=== PATIENT | male | born 1975 | race African-American/Black ===

== ENCOUNTER 2021-07-03 13:12 | Inpatient (IN) ==
[2021-07-03] MEDS ORDERED: ONDANSETRON 4 MG/2 ML VIAL IV ONE (17:44)
[2021-07-03] MEDS ORDERED: MORPHINE 2 MG/1 ML SYRINGE IV STA (17:44)
[2021-07-03] MEDS ORDERED: LABETALOL 20 MG/4 ML SYRINGE IV STA (17:44)
[2021-07-03 18:09] LABS: Basophils % 0.2 % (0.0-0.8); Eosinophils # 0.1 10*3/uL (0.0-0.87); Eosinophils % 0.5 % (0.00-10.9); Hematocrit 34.5 VOL% (42.0-52.0); Hemoglobin 10.6 GM/DL (14.0-18.0); Immature Granulocytes % 0.6 %; Immature Granulocytes Absolute 0.06 #; Lymphocytes # 0.8 10*3/uL (1.4-4.0); Lymphocytes % 8.8 % (21.2-54.2); Mean Corpuscular HGB Conc 30.7 GM/DL (32-36); Mean Corpuscular Volume 97.2 FL (87-102); Mean Platelet Volume 10.7 FL (9.6-12.0); Monocytes % 9.3 % (1.7-12.7); Neutrophils % 80.6 % (38.7-73.9); Platelet Count 177 T/CUMM (130-400); Red Blood Count 3.55 MC/CUMM (3.8-5.5); Red Cell Distribution Width 12.8 % (9.3-17.3); White Blood Count 9.5 T/CUMM (4-12)
[2021-07-03 18:42] LABS: Albumin 3.2 G/DL (3.4-5.0); Bilirubin,Total 0.8 MG/DL (0.20-1.00); Calcium 7.2 MG/DL (8.5-10.1); Potassium 4.3 MMOL/L (3.5-5.1); Total Protein 8.5 G/DL (6.4-8.2)
[2021-07-03] MEDS ORDERED: MAGNESIUM SULF RIDER 4 GM/100 ML PREMIX IV PRN (19:50)
[2021-07-03] MEDS ORDERED: GLUCAGON 1 MG VIAL IM PRN (19:50)
[2021-07-03] MEDS ORDERED: MAGNESIUM SULF RIDER 2 GM/50 ML PREMIX IV PRN (19:50)
[2021-07-03] MEDS ORDERED: DEXTROSE 50% 25 GM/50 ML VIAL IV PRN (19:50)
[2021-07-03] MEDS ORDERED: MORPHINE 2 MG/1 ML SYRINGE IV PRN (19:53)
[2021-07-03] MEDS ORDERED: ACETAMINOPHEN 325 MG TABLET PO PRN (19:53)
[2021-07-03] MEDS ORDERED: ASPIRIN CHEW 81 MG TABLET PO ONE (19:53)
[2021-07-03] MEDS ORDERED: SIMETHICONE CHEW 125 MG TABLET PO PRN (19:53)
[2021-07-03] MEDS ORDERED: ONDANSETRON 4 MG/2 ML VIAL IV PRN (19:53)
[2021-07-03] MEDS ORDERED: POTASSIUM CHLORIDE 20 MEQ TABLET PO PRN (19:53)
[2021-07-03] MEDS ORDERED: POTASSIUM CHLORIDE RIDER 10 MEQ/100 ML PREMIX IV PRN (19:53)
[2021-07-03] MEDS ORDERED: cloNIDine 0.1 MG TABLET PO STA (20:03)
[2021-07-03] MEDS ORDERED: FUROSEMIDE 40 MG/4 ML VIAL IV STA (20:12)
[2021-07-03] MEDS ORDERED: ASPIRIN 325 MG TABLET ONE (20:13)
[2021-07-03] MEDS ORDERED: COLCHICINE 0.6 MG CAPSULE PO STA (20:15)
[2021-07-03] MEDS: HEPARIN 5,000 UNIT/1 ML VIAL SUBCUT SCH (20:29)
[2021-07-03] MEDS: METOPROLOL TARTRATE 25 MG TABLET PO SCH (22:41)
[2021-07-03] MEDS: PANTOPRAZOLE 40 MG TABLET PO SCH (22:41)
[2021-07-03] MEDS: INSULIN REGULAR 100 UNIT/ML SUBCUT SCH (22:41)
[2021-07-03] MEDS: ATORVASTATIN 10 MG TABLET PO SCH (22:41)
[2021-07-03] MEDS: DOCUSATE SODIUM 100 MG CAPSULE PO SCH (22:41)
[2021-07-04 05:15] LABS: Basophils % 0.4 % (0.0-0.8); Eosinophils # 0.1 10*3/uL (0.0-0.87); Eosinophils % 2.3 % (0.00-10.9); Hematocrit 32.1 VOL% (42.0-52.0); Hemoglobin 9.6 GM/DL (14.0-18.0); Immature Granulocytes % 0.4 %; Immature Granulocytes Absolute 0.02 #; Lymphocytes # 1.3 10*3/uL (1.4-4.0); Lymphocytes % 23.2 % (21.2-54.2); Mean Corpuscular HGB Conc 29.9 GM/DL (32-36); Mean Corpuscular Volume 99.7 FL (87-102); Mean Platelet Volume 11.3 FL (9.6-12.0); Neutrophils % 59.7 % (38.7-73.9); Platelet Count 174 T/CUMM (130-400); Red Blood Count 3.22 MC/CUMM (3.8-5.5); Red Cell Distribution Width 12.8 % (9.3-17.3); White Blood Count 5.7 T/CUMM (4-12)
[2021-07-04 05:48] LABS: Osmolality,Calculated 297.8 MOS/KG (273-304); Risk Ratio 4.16; Thyroid Stimulating Hormone 1.71 uIU/ml (0.358-3.74)
[2021-07-04] MEDS ORDERED: FUROSEMIDE 40 MG/4 ML VIAL IV SCH (08:00)
[2021-07-04] MEDS ORDERED: LOSARTAN 25 MG TABLET PO SCH (09:00)
[2021-07-04] MEDS ORDERED: PANTOPRAZOLE 40 MG TABLET PO SCH (09:00)
[2021-07-04] MEDS ORDERED: SPIRONOLACTONE 25 MG TABLET PO SCH (09:00)
[2021-07-04] MEDS: FUROSEMIDE 40 MG/4 ML VIAL IV SCH (09:31)
[2021-07-04] MEDS: HEPARIN 5,000 UNIT/1 ML VIAL SUBCUT SCH ×2 (09:31→20:39)
[2021-07-04] MEDS: PANTOPRAZOLE 40 MG TABLET PO SCH ×2 (09:32→20:39)
[2021-07-04] MEDS: METOPROLOL TARTRATE 25 MG TABLET PO SCH ×2 (09:32→20:42)
[2021-07-04] MEDS: ASPIRIN EC 325 MG TABLET PO SCH (09:32)
[2021-07-04] MEDS: DOCUSATE SODIUM 100 MG CAPSULE PO SCH ×2 (09:32→20:39)
[2021-07-04] MEDS: INSULIN REGULAR 100 UNIT/ML SUBCUT SCH ×4 (09:36→21:07)
[2021-07-04] MEDS: predniSONE 5 MG TABLET PO SCH (14:30)
[2021-07-04] MEDS: allopurinoL 100 MG TABLET PO SCH (14:30)
[2021-07-04] MEDS: ATORVASTATIN 10 MG TABLET PO SCH (20:39)
[2021-07-05] MEDS: hydrALAZINE 20 MG/1 ML VIAL IV PRN ×2 (05:09→16:43)
[2021-07-05 06:07] LABS: Basophils % 0.3 % (0.0-0.8); Eosinophils # 0.1 10*3/uL (0.0-0.87); Eosinophils % 1.7 % (0.00-10.9); Hematocrit 32.6 VOL% (42.0-52.0); Hemoglobin 10.1 GM/DL (14.0-18.0); Immature Granulocytes % 0.3 %; Immature Granulocytes Absolute 0.02 #; Lymphocytes # 1.1 10*3/uL (1.4-4.0); Mean Corpuscular Volume 100.3 FL (87-102); Mean Platelet Volume 11.6 FL (9.6-12.0); Monocytes % 8.7 % (1.7-12.7); Platelet Count 178 T/CUMM (130-400); Red Blood Count 3.25 MC/CUMM (3.8-5.5); Red Cell Distribution Width 12.7 % (9.3-17.3)
[2021-07-05 06:36] LABS: Calcium 7.1 MG/DL (8.5-10.1); Osmolality,Calculated 302.4 MOS/KG (273-304); Potassium 4.3 MMOL/L (3.5-5.1)
[2021-07-05 06:49] LABS: Immunoglobulin A 427 MG/DL (70-400); Immunoglobulin G 1490 MG/DL (700-1600); Immunoglobulin M 84 MG/DL (40-230)
[2021-07-05] MEDS: predniSONE 5 MG TABLET PO SCH (09:52)
[2021-07-05] MEDS: allopurinoL 100 MG TABLET PO SCH (09:52)
[2021-07-05] MEDS: METOPROLOL TARTRATE 25 MG TABLET PO SCH ×2 (09:52→20:31)
[2021-07-05] MEDS: hydrALAZINE 10 MG TABLET PO SCH ×2 (09:52→20:31)
[2021-07-05] MEDS: ASPIRIN EC 325 MG TABLET PO SCH (09:52)
[2021-07-05] MEDS: DOCUSATE SODIUM 100 MG CAPSULE PO SCH ×2 (09:52→20:31)
[2021-07-05] MEDS: PANTOPRAZOLE 40 MG TABLET PO SCH ×2 (09:52→20:31)
[2021-07-05] MEDS ORDERED: COLCHICINE 0.6 MG CAPSULE PO ONE (09:53)
[2021-07-05] MEDS: FUROSEMIDE 40 MG/4 ML VIAL IV SCH (09:57)
[2021-07-05] MEDS: HEPARIN 5,000 UNIT/1 ML VIAL SUBCUT SCH ×2 (09:57→20:39)
[2021-07-05] MEDS: INSULIN REGULAR 100 UNIT/ML SUBCUT SCH ×4 (10:15→21:33)
[2021-07-05 15:05] LABS: Bilirubin,Urine Negative (Negative); Blood, Urine Negative (Negative); Glucose,Urine (UA) 50 mg/dL (Negative); Ketones,Urine Negative (Negative); Nitrite,Urine Negative (Negative); Protein,Urine 100 MG/DL; RBC,Urine 1 /HPF (0-4); Squamous Epithelial Cell,Urine Occasional /HPF (0-10); Urine Appearance CLEAR (Clear); Urine Color Straw (Yellow); Urine Specific Gravity 1.008 (1.001-1.035); Urine Urobilinogen < 2.0 EU/DL (0.2-1.0)
[2021-07-05] MEDS: predniSONE 20 MG TABLET PO SCH (15:09)
[2021-07-05] MEDS: ATORVASTATIN 10 MG TABLET PO SCH (20:31)
[2021-07-05] MEDS ORDERED: hydrALAZINE 20 MG/1 ML VIAL IV PRN (20:57)
[2021-07-05] MEDS ORDERED: LABETALOL 20 MG/4 ML SYRINGE IV PRN (21:00)
[2021-07-06] MEDS ORDERED: NITROGLYCERIN 2% OINT 1 INCH/GM PACK TOP ONE (01:07)
[2021-07-06 06:34] LABS: Protein/Creatinine Ratio,Urine 1.8 RATIO
[2021-07-06 06:38] LABS: Basophils % 0.1 % (0.0-0.8); Hematocrit 31.6 VOL% (42.0-52.0); Hemoglobin 9.7 GM/DL (14.0-18.0); Immature Granulocytes % 0.4 %; Immature Granulocytes Absolute 0.03 #; Lymphocytes # 0.6 10*3/uL (1.4-4.0); Lymphocytes % 7.2 % (21.2-54.2); Mean Corpuscular HGB Conc 30.7 GM/DL (32-36); Mean Corpuscular Volume 98.4 FL (87-102); Monocytes % 6.1 % (1.7-12.7); Neutrophils % 86.2 % (38.7-73.9); Platelet Count 206 T/CUMM (130-400); Red Blood Count 3.21 MC/CUMM (3.8-5.5); Red Cell Distribution Width 12.6 % (9.3-17.3); White Blood Count 7.9 T/CUMM (4-12)
[2021-07-06 07:09] LABS: Calcium 7.2 MG/DL (8.5-10.1); Potassium 4.5 MMOL/L (3.5-5.1)
[2021-07-06] MEDS: predniSONE 20 MG TABLET PO SCH (09:44)
[2021-07-06] MEDS: DOCUSATE SODIUM 100 MG CAPSULE PO SCH ×2 (09:44→20:23)
[2021-07-06] MEDS: allopurinoL 100 MG TABLET PO SCH (09:44)
[2021-07-06] MEDS: hydrALAZINE 25 MG TABLET PO SCH ×2 (09:44→20:23)
[2021-07-06] MEDS: calcitrioL 0.25 MCG CAPSULE PO SCH (09:44)
[2021-07-06] MEDS: ASPIRIN EC 325 MG TABLET PO SCH (09:44)
[2021-07-06] MEDS: METOPROLOL TARTRATE 25 MG TABLET PO SCH ×2 (09:44→20:23)
[2021-07-06] MEDS: FUROSEMIDE 40 MG/4 ML VIAL IV SCH (09:45)
[2021-07-06] MEDS: HEPARIN 5,000 UNIT/1 ML VIAL SUBCUT SCH ×2 (09:45→20:24)
[2021-07-06] MEDS: PANTOPRAZOLE 40 MG TABLET PO SCH ×2 (09:45→20:24)
[2021-07-06] MEDS: INSULIN REGULAR 100 UNIT/ML SUBCUT SCH ×4 (10:48→20:25)
[2021-07-06] MEDS: ISOSORBIDE MONONITRATE 30 MG TABLET PO SCH (14:12)
[2021-07-06] MEDS: ATORVASTATIN 10 MG TABLET PO SCH (20:24)
[2021-07-07 04:41] LABS: Eosinophils % 0.1 % (0.00-10.9); Hematocrit 30.5 VOL% (42.0-52.0); Hemoglobin 9.1 GM/DL (14.0-18.0); Immature Granulocytes % 0.5 %; Immature Granulocytes Absolute 0.04 #; Lymphocytes % 11.6 % (21.2-54.2); Mean Corpuscular HGB Conc 29.8 GM/DL (32-36); Mean Platelet Volume 11.2 FL (9.6-12.0); Monocytes % 8.3 % (1.7-12.7); Neutrophils % 79.5 % (38.7-73.9); Platelet Count 213 T/CUMM (130-400); Red Blood Count 3.08 MC/CUMM (3.8-5.5); Red Cell Distribution Width 12.6 % (9.3-17.3); White Blood Count 8.7 T/CUMM (4-12)
[2021-07-07 05:03] LABS: Calcium 7.4 MG/DL (8.5-10.1); Osmolality,Calculated 305.5 MOS/KG (273-304); Potassium 4.3 MMOL/L (3.5-5.1)
[2021-07-07 05:17] LABS: % Iron Saturation 26.4 % (18-50); Ferritin 85.3 ng/mL (26-388)
[2021-07-07 05:26] LABS: Folate 5.17 NG/ML (5.38-24.0)
[2021-07-07 07:02] LABS: Total Protein (Chem) 6.9 G/DL (6.4-8.3)
[2021-07-07 07:04] LABS: Random Urine Protein (Bench) 87 MG/DL (<11.9)
[2021-07-07 07:05] LABS: Immunoglobulin A (Chem) 427 MG/DL (70-400); Immunoglobulin G (Chem) 1490 MG/DL (700-1600); Immunoglobulin M (Chem) 84 MG/DL (40-230)
[2021-07-07 09:00] LABS: Albumin (SPE) 3.5 G/DL (3.2-5.3); Albumin (SPE) Rel % 50.7 %; Alpha 1 (SPE) 0.3 G/DL (0.1-0.4); Alpha 1 (SPE) Rel % 4.1 %; Alpha 2 (SPE) 0.8 G/DL (0.4-1.0); Alpha 2 (SPE) Rel % 12.3 %; Beta (SPE) 0.8 G/DL (0.5-1.1); Beta (SPE) Rel % 12.2 %; Gamma (SPE) 1.4 G/DL (0.7-1.7); Gamma (SPE) Rel % 20.7 %
[2021-07-07] MEDS ORDERED: predniSONE 20 MG TABLET PO SCH (09:00)
[2021-07-07] MEDS ORDERED: predniSONE 10 MG TABLET PO SCH (09:00)
[2021-07-07 09:12] LABS: Albumin (UPER) 58.6 MG/DL; Albumin (UPER) Rel% 67.3 %; Alpha 1 (UPER) 4.9 MG/DL; Alpha 1 (UPER) Rel% 5.6 %; Alpha 2 (UPER) 7.7 MG/DL; Alpha 2 (UPER) Rel % 8.8 %; Beta (UPER) 8.7 MG/DL; Gamma (UPER) 7.2 MG/DL; Gamma (UPER) Rel % 8.3 %
[2021-07-07] MEDS: ASPIRIN EC 325 MG TABLET PO SCH (09:16)
[2021-07-07] MEDS: METOPROLOL TARTRATE 25 MG TABLET PO SCH (09:16)
[2021-07-07] MEDS: DOCUSATE SODIUM 100 MG CAPSULE PO SCH (09:16)
[2021-07-07] MEDS: calcitrioL 0.25 MCG CAPSULE PO SCH (09:16)
[2021-07-07] MEDS: hydrALAZINE 25 MG TABLET PO SCH (09:17)
[2021-07-07] MEDS: PANTOPRAZOLE 40 MG TABLET PO SCH (09:17)
[2021-07-07] MEDS: allopurinoL 100 MG TABLET PO SCH (09:17)
[2021-07-07] MEDS: ISOSORBIDE MONONITRATE 30 MG TABLET PO SCH (09:17)
[2021-07-07] MEDS: HEPARIN 5,000 UNIT/1 ML VIAL SUBCUT SCH (09:18)
[2021-07-07] MEDS: FUROSEMIDE 40 MG/4 ML VIAL IV SCH (09:18)
[2021-07-07] MEDS: INSULIN REGULAR 100 UNIT/ML SUBCUT SCH ×2 (09:22→12:33)
[2021-07-07 16:04] VITALS: BP 169/98
[2021-07-08] MEDS ORDERED: FERROUS SULFATE 325 MG TABLET PO SCH (09:00)
[2021-07-11 09:10] LABS: Immuno Free Light Chain Kappa 20.62 MG/DL (0.33-1.94); Immuno Free Light Chain Lambda 10.36 MG/DL (0.57-2.63); Immuno Free Light Chain Ratio 1.99 MG/DL (0.26-1.65)
== END 2021-07-07 18:07 | disposition home or self-care (01) | DRG 305 ==
LOC: N.ED 13:12 → SUATTDRO 19:50 → N.EDINP 19:50 → N.TELEN 21:32
PROVIDERS: ADMIT Internal Medicine; ATTEND Internal Medicine

== ENCOUNTER 2021-10-02 21:36 | Inpatient (IN) ==
[2021-10-02] MEDS ORDERED: FUROSEMIDE 100 MG/10 ML VIAL IV STA (22:15)
[2021-10-02] MEDS ORDERED: ONDANSETRON 4 MG/2 ML VIAL IV STA (22:39)
[2021-10-02] MEDS ORDERED: hydrALAZINE 20 MG/1 ML VIAL IV STA (22:39)
[2021-10-02] MEDS ORDERED: MORPHINE 2 MG/1 ML SYRINGE IV STA (22:39)
[2021-10-02] MEDS ORDERED: ASPIRIN CHEW 81 MG TABLET PO STA (22:39)
[2021-10-02] MEDS ORDERED: NITROGLYCERIN 2% OINT 1 INCH/GM PACK TOP STA (22:39)
[2021-10-02] MEDS ORDERED: methylPREDNISolone SOD SUC 125 MG/2 ML VIAL IV STA (22:43)
[2021-10-02] MEDS ORDERED: ALBUTEROL/IPRATROPIUM 3 ML NEB RESP TX STA (22:43)
[2021-10-02 22:44] LABS: INR 1.1; PT Patient Result 11.7 SECS (10.5-12.0)
[2021-10-02 22:53] LABS: Basophils % 0.2 % (0.0-0.8); Eosinophils # 0.1 10*3/uL (0.0-0.87); Hemoglobin 9.6 GM/DL (14.0-18.0); Immature Granulocytes % 0.5 %; Immature Granulocytes Absolute 0.04 #; Lymphocytes # 0.6 10*3/uL (1.4-4.0); Lymphocytes % 6.7 % (21.2-54.2); Mean Corpuscular HGB Conc 28.4 GM/DL (32-36); Mean Corpuscular Volume 99.7 FL (87-102); Mean Platelet Volume 12.2 FL (9.6-12.0); Monocytes % 3.4 % (1.7-12.7); Neutrophils % 88.2 % (38.7-73.9); Platelet Count 197 T/CUMM (130-400); Red Blood Count 3.39 MC/CUMM (3.8-5.5); White Blood Count 8.2 T/CUMM (4-12)
[2021-10-02 22:54] LABS: Hematocrit 33.8 VOL% (42.0-52.0)
[2021-10-02 22:59] LABS: Albumin 3.6 G/DL (3.4-5.0); Bilirubin,Total 0.7 MG/DL (0.20-1.00); Calcium 7.8 MG/DL (8.5-10.1); Osmolality,Calculated 304.1 MOS/KG (273-304); Potassium 5.2 MMOL/L (3.5-5.1)
[2021-10-02] MEDS ORDERED: niCARdipine 25 MG/10 ML VIAL IV ONE (23:03)
[2021-10-02] MEDS ORDERED: niCARdipine INJ 25 MG in SODIUM CHLORIDE 0.9% 240 ML IV PRN (23:03)
[2021-10-02] MEDS ORDERED: propofoL 200 MG/20 ML VIAL IV ONE (23:16)
[2021-10-02] MEDS ORDERED: PIPERACILLIN/TAZOBACTAM 2,250 MG in SODIUM CHLORIDE 0.9% 100 ML IV STA (23:34)
[2021-10-02 23:38] LABS: Acanthocytes 1+; Poikilocytosis 1+; Polychromasia 1+
[2021-10-02] MEDS ORDERED: PIPERACILLIN/TAZOBACTAM 3,375 MG in SODIUM CHLORIDE 0.9% 100 ML IV STA (23:38)
[2021-10-02 23:39] LABS: Macrocytosis 1+; Platelet Estimate Adequate
[2021-10-02] MEDS ORDERED: ENOXAPARIN 100 MG/ML SYRINGE SUBCUT STA (23:39)
[2021-10-03 00:21] LABS: ABG Base Excess -5.8 MMOL/L (-2.5-2.5); ABG HCO3 23.2 MMOL/L (20-26); ABG Oxygen Saturation 92.7 % (95-100); ABG PCO2 66.7 MM HG (35-48); ABG PO2 85.1 MM HG (80-95); ABG TCO2 25.3 MMOL/L (23-27)
[2021-10-03] MEDS ORDERED: FUROSEMIDE 40 MG/4 ML VIAL IV ONE (00:49)
[2021-10-03] MEDS ORDERED: NICOTINE 21 MG/24 HR PATCH TRANSDERM PRN (01:13)
[2021-10-03] MEDS ORDERED: ONDANSETRON 4 MG/2 ML VIAL IV PRN (01:13)
[2021-10-03] MEDS ORDERED: ACETAMINOPHEN 325 MG TABLET PO PRN (01:13)
[2021-10-03] MEDS ORDERED: VECURONIUM 10 MG VIAL IV ONE ×2 (01:36→04:49)
[2021-10-03] MEDS ORDERED: ETOMIDATE 20 MG/10 ML VIAL IV ONE (01:36)
[2021-10-03 01:45] LABS: Bilirubin,Urine Negative (Negative); Blood, Urine Negative (Negative); Glucose,Urine (UA) 150 mg/dL (Negative); Ketones,Urine Negative (Negative); Mucus,Urine Occasional /LPF (Occasional); Nitrite,Urine Negative (Negative); Protein,Urine >=500 MG/DL; RBC,Urine 4 /HPF (0-4); Squamous Epithelial Cell,Urine Occasional /HPF (0-10); Urine Appearance CLEAR (Clear); Urine Color Straw (Yellow); Urine Specific Gravity 1.009 (1.001-1.035); Urine Urobilinogen < 2.0 EU/DL (<2.0)
[2021-10-03 02:17] LABS: Barbiturates Screen,Urine Negative (Negative); Benzodiazepines Screen,Urine Negative (Negative); Cannabinoid Screen,Urine Negative (Negative); Opiate Screen,Urine Negative (Negative); Phencyclidine Screen,Urine Negative (Negative)
[2021-10-03] MEDS ORDERED: ROCURONIUM 500 MG in SODIUM CHLORIDE 0.9% 500 ML IV PRN (02:20)
[2021-10-03] MEDS ORDERED: ROCURONIUM 100 MG/10 ML VIAL IV STA (02:21)
[2021-10-03] MEDS ORDERED: ROCURONIUM 100 MG/10 ML VIAL IV ONE (02:21)
[2021-10-03 04:07] LABS: ABG HCO3 23.8 MMOL/L (20-26); ABG Oxygen Saturation 95.6 % (95-100); ABG PCO2 51.4 MM HG (35-48); ABG PH 7.284 (7.35-7.45); ABG PO2 87.9 MM HG (80-95); ABG TCO2 25.4 MMOL/L (23-27)
[2021-10-03] MEDS ORDERED: ETOMIDATE 20 MG/10 ML VIAL IV STA (04:49)
[2021-10-03 05:51] LABS: Basophils % 0.1 % (0.0-0.8); Hematocrit 30.6 VOL% (42.0-52.0); Hemoglobin 8.9 GM/DL (14.0-18.0); Immature Granulocytes % 0.7 %; Immature Granulocytes Absolute 0.08 #; Lymphocytes # 0.2 10*3/uL (1.4-4.0); Lymphocytes % 1.5 % (21.2-54.2); Mean Corpuscular HGB Conc 29.1 GM/DL (32-36); Mean Platelet Volume 11.3 FL (9.6-12.0); Monocytes % 5.7 % (1.7-12.7); Platelet Count 183 T/CUMM (130-400); Red Blood Count 3.06 MC/CUMM (3.8-5.5); White Blood Count 11.8 T/CUMM (4-12)
[2021-10-03 06:13] LABS: Alanine Aminotransferase 30 U/L (16-61); Albumin 3.1 G/DL (3.4-5.0); Alkaline Phosphatase 97 U/L (45-117); Aspartate Amino Transferase 21 U/L (0-37); Blood Urea Nitrogen 58 MG/DL (7-18); Calcium 7.3 MG/DL (8.5-10.1); Carbon Dioxide 22 MMOL/L (21-32); Estimated Glom Filtration Rate 24 ML/MIN; Glucose 184 MG/DL (74-106); Osmolality,Calculated 306.8 MOS/KG (273-304); Potassium 5.4 MMOL/L (3.5-5.1); Sodium 144 MMOL/L (136-145); Total Protein 7.5 G/DL (6.4-8.2)
[2021-10-03 07:11] LABS: Anisocytosis 2+; Band Neutrophils 23 % (0-10); Lymphocytes 2 % (20-55); Nucleated Red Blood Cells 1 (0-5); Platelet Estimate Normal; Segmented Neutrophils 71 % (50-85); Target Cells 1+; Total Cells Counted 100
[2021-10-03 07:12] LABS: Macrocytosis 1+; Polychromasia Slight
[2021-10-03] MEDS: ALBUTEROL/IPRATROPIUM 3 ML NEB RESP TX SCH ×3 (07:19→18:05)
[2021-10-03] MEDS: PIPERACILLIN/TAZOBACTAM 3,375 MG in SODIUM CHLORIDE 0.9% 100 ML IV SCH ×3 (08:54→23:53)
[2021-10-03] MEDS: FUROSEMIDE 100 MG/10 ML VIAL IV SCH ×2 (08:54→19:27)
[2021-10-03] MEDS: PANTOPRAZOLE 40 MG VIAL IV SCH (09:07)
[2021-10-03] MEDS: METOPROLOL TARTRATE 50 MG TABLET NG SCH ×2 (09:08→21:49)
[2021-10-03] MEDS: ASPIRIN CHEW 81 MG TABLET PO SCH (09:08)
[2021-10-03] MEDS ORDERED: MIDAZOLAM 100 MG in SODIUM CHLORIDE 0.9% 80 ML IV PRN (11:07)
[2021-10-03] MEDS ORDERED: CALCIUM GLUCONATE RIDER 1,000 MG/50 ML PREMIX IV ONE (11:09)
[2021-10-03] MEDS: ENOXAPARIN 100 MG/ML SYRINGE SUBCUT SCH ×2 (12:04→23:53)
[2021-10-03] MEDS: hydrALAZINE 25 MG TABLET NG SCH ×3 (12:05→23:54)
[2021-10-03] MEDS: INSULIN LISPRO 100 UNIT/ML SUBCUT SCH ×2 (12:20→19:17)
[2021-10-03] MEDS ORDERED: METOPROLOL TARTRATE 50 MG TABLET PO ONE (16:19)
[2021-10-03] MEDS ORDERED: hydrALAZINE 25 MG TABLET PO ONE (16:21)
[2021-10-03] MEDS: ISOSORBIDE DINITRATE 20 MG TABLET NG SCH ×2 (16:26→21:49)
[2021-10-03] MEDS ORDERED: SODIUM CHLORIDE 0.9% IV PRN (17:30)
[2021-10-03] MEDS ORDERED: NICARDIPINE IV PRN (17:30)
[2021-10-03] MEDS ORDERED: niCARdipine INJ 25 MG in SODIUM CHLORIDE 0.9% 240 ML IV PRN (18:00)
[2021-10-03] MEDS ORDERED: hydrALAZINE 25 MG TABLET PO SCH (21:00)
[2021-10-04] MEDS: INSULIN LISPRO 100 UNIT/ML SUBCUT SCH ×5 (00:02→23:05)
[2021-10-04] MEDS: ALBUTEROL/IPRATROPIUM 3 ML NEB RESP TX SCH ×4 (01:44→18:06)
[2021-10-04 03:08] LABS: ABG Base Excess -0.4 MMOL/L (-2.5-2.5); ABG HCO3 25.4 MMOL/L (20-26); ABG Oxygen Saturation 95.2 % (95-100); ABG PCO2 47.4 MM HG (35-48); ABG PH 7.347 (7.35-7.45); ABG TCO2 26.9 MMOL/L (23-27)
[2021-10-04 04:31] LABS: Basophils % 0.1 % (0.0-0.8); Hematocrit 28.2 VOL% (42.0-52.0); Hemoglobin 8.1 GM/DL (14.0-18.0); Lymphocytes # 0.5 10*3/uL (1.4-4.0); Lymphocytes % 3.2 % (21.2-54.2); Mean Corpuscular HGB Conc 28.7 GM/DL (32-36); Mean Corpuscular Volume 100.4 FL (87-102); Mean Platelet Volume 11.6 FL (9.6-12.0); Monocytes % 3.9 % (1.7-12.7); Neutrophils % 92.4 % (38.7-73.9); Platelet Count 192 T/CUMM (130-400); Red Blood Count 2.81 MC/CUMM (3.8-5.5); Red Cell Distribution Width 14.9 % (9.3-17.3); White Blood Count 14.8 T/CUMM (4-12)
[2021-10-04 05:01] LABS: Hypochromia 1+; Lymphocytes 1 % (20-55); Microcytosis 1+; Platelet Estimate Adequate; Segmented Neutrophils 95 % (50-85)
[2021-10-04 05:43] LABS: Calcium 7.7 MG/DL (8.5-10.1); Osmolality,Calculated 304.7 MOS/KG (273-304); Potassium 4.6 MMOL/L (3.5-5.1)
[2021-10-04] MEDS: hydrALAZINE 25 MG TABLET NG SCH ×4 (06:06→23:05)
[2021-10-04] MEDS: ASPIRIN CHEW 81 MG TABLET PO SCH (08:25)
[2021-10-04] MEDS: allopurinoL 100 MG TABLET PO SCH (08:25)
[2021-10-04] MEDS: METOPROLOL TARTRATE 50 MG TABLET NG SCH ×2 (08:25→20:39)
[2021-10-04] MEDS: ISOSORBIDE DINITRATE 20 MG TABLET NG SCH ×3 (08:25→20:39)
[2021-10-04] MEDS: PANTOPRAZOLE 40 MG VIAL IV SCH (08:28)
[2021-10-04] MEDS: FUROSEMIDE 100 MG/10 ML VIAL IV SCH ×2 (08:31→16:26)
[2021-10-04] MEDS: PIPERACILLIN/TAZOBACTAM 3,375 MG in SODIUM CHLORIDE 0.9% 100 ML IV SCH ×3 (08:31→22:53)
[2021-10-04] MEDS ORDERED: allopurinoL 100 MG TABLET PO SCH (09:00)
[2021-10-04] MEDS: ENOXAPARIN 100 MG/ML SYRINGE SUBCUT SCH ×2 (11:54→22:54)
[2021-10-05] MEDS: ALBUTEROL/IPRATROPIUM 3 ML NEB RESP TX SCH ×4 (01:30→18:33)
[2021-10-05 03:38] LABS: Basophils % 0.2 % (0.0-0.8); Eosinophils # 0.1 10*3/uL (0.0-0.87); Eosinophils % 0.6 % (0.00-10.9); Hematocrit 28.5 VOL% (42.0-52.0); Hemoglobin 8.4 GM/DL (14.0-18.0); Immature Granulocytes % 0.2 %; Immature Granulocytes Absolute 0.02 #; Lymphocytes # 1.2 10*3/uL (1.4-4.0); Lymphocytes % 13.8 % (21.2-54.2); Mean Corpuscular HGB Conc 29.5 GM/DL (32-36); Mean Corpuscular Volume 96.6 FL (87-102); Mean Platelet Volume 10.9 FL (9.6-12.0); Monocytes % 6.5 % (1.7-12.7); Neutrophils % 78.7 % (38.7-73.9); Platelet Count 204 T/CUMM (130-400); Red Blood Count 2.95 MC/CUMM (3.8-5.5); Red Cell Distribution Width 15.4 % (9.3-17.3); White Blood Count 8.9 T/CUMM (4-12)
[2021-10-05 03:52] LABS: Calcium 7.9 MG/DL (8.5-10.1); Osmolality,Calculated 309.4 MOS/KG (273-304); Potassium 3.9 MMOL/L (3.5-5.1)
[2021-10-05] MEDS ORDERED: POTASSIUM CHLORIDE RIDER 20 MEQ/100 ML PREMIX IV PRN (04:23)
[2021-10-05] MEDS ORDERED: POTASSIUM CHLORIDE RIDER 10 MEQ/100 ML PREMIX IV PRN (04:23)
[2021-10-05 04:33] LABS: ABG Base Excess 0.5 MMOL/L (-2.5-2.5); ABG HCO3 22.5 MMOL/L (20-26); ABG Oxygen Saturation 97.1 % (95-100); ABG PH 7.539 (7.35-7.45); ABG PO2 89.8 MM HG (80-95); ABG TCO2 23.3 MMOL/L (23-27)
[2021-10-05] MEDS: hydrALAZINE 25 MG TABLET NG SCH (05:01)
[2021-10-05] MEDS: INSULIN LISPRO 100 UNIT/ML SUBCUT SCH ×4 (06:00→23:34)
[2021-10-05] MEDS: PIPERACILLIN/TAZOBACTAM 3,375 MG in SODIUM CHLORIDE 0.9% 100 ML IV SCH ×2 (08:59→15:24)
[2021-10-05] MEDS ORDERED: RIVAROXABAN 10 MG TABLET PO SCH (09:00)
[2021-10-05] MEDS: minoxidiL 2.5 MG TABLET PO SCH ×2 (09:01→20:39)
[2021-10-05] MEDS: ISOSORBIDE DINITRATE 20 MG TABLET NG SCH ×3 (09:01→20:39)
[2021-10-05] MEDS: ASPIRIN CHEW 81 MG TABLET PO SCH (09:01)
[2021-10-05] MEDS: METOPROLOL TARTRATE 50 MG TABLET NG SCH ×2 (09:02→20:39)
[2021-10-05] MEDS: FUROSEMIDE 100 MG/10 ML VIAL IV SCH ×2 (09:04→15:28)
[2021-10-05] MEDS: PANTOPRAZOLE 40 MG VIAL IV SCH (09:05)
[2021-10-05] MEDS: allopurinoL 100 MG TABLET PO SCH (09:10)
[2021-10-06] MEDS: PIPERACILLIN/TAZOBACTAM 3,375 MG in SODIUM CHLORIDE 0.9% 100 ML IV SCH ×3 (00:13→15:26)
[2021-10-06] MEDS: ALBUTEROL/IPRATROPIUM 3 ML NEB RESP TX SCH ×4 (01:13→19:44)
[2021-10-06 04:10] LABS: Calcium 7.4 MG/DL (8.5-10.1); Osmolality,Calculated 305.7 MOS/KG (273-304); Potassium 4.3 MMOL/L (3.5-5.1)
[2021-10-06 04:25] LABS: Basophils % 0.2 % (0.0-0.8); Eosinophils # 0.2 10*3/uL (0.0-0.87); Eosinophils % 3.3 % (0.00-10.9); Hematocrit 29.6 VOL% (42.0-52.0); Immature Granulocytes % 0.3 %; Immature Granulocytes Absolute 0.02 #; Lymphocytes # 0.9 10*3/uL (1.4-4.0); Lymphocytes % 15.7 % (21.2-54.2); Mean Corpuscular HGB Conc 28.7 GM/DL (32-36); Mean Corpuscular Volume 100.3 FL (87-102); Mean Platelet Volume 11.6 FL (9.6-12.0); Monocytes % 10.5 % (1.7-12.7); Platelet Count 204 T/CUMM (130-400); Red Blood Count 2.95 MC/CUMM (3.8-5.5); Red Cell Distribution Width 15.4 % (9.3-17.3); White Blood Count 5.7 T/CUMM (4-12)
[2021-10-06 04:28] LABS: Hemoglobin 8.5 GM/DL (14.0-18.0)
[2021-10-06 04:29] LABS: Hypochromia 1+
[2021-10-06 04:30] LABS: Microcytosis 1+; Ovalocytes Slight; Platelet Estimate Normal; Target Cells Slight
[2021-10-06] MEDS: INSULIN LISPRO 100 UNIT/ML SUBCUT SCH ×4 (05:10→19:05)
[2021-10-06] MEDS ORDERED: CALCIUM GLUCONATE RIDER 1,000 MG/50 ML PREMIX IV ONE (08:23)
[2021-10-06] MEDS ORDERED: MAGNESIUM SULF RIDER 2 GM/50 ML PREMIX IV ONE (08:23)
[2021-10-06] MEDS: FUROSEMIDE 100 MG/10 ML VIAL IV SCH (08:39)
[2021-10-06] MEDS: PANTOPRAZOLE 40 MG VIAL IV SCH (08:39)
[2021-10-06] MEDS: minoxidiL 2.5 MG TABLET PO SCH ×2 (08:40→22:44)
[2021-10-06] MEDS: METOPROLOL TARTRATE 50 MG TABLET NG SCH ×2 (08:40→22:44)
[2021-10-06] MEDS: ASPIRIN CHEW 81 MG TABLET PO SCH (08:40)
[2021-10-06] MEDS: allopurinoL 100 MG TABLET PO SCH (08:40)
[2021-10-06] MEDS: ISOSORBIDE DINITRATE 20 MG TABLET NG SCH ×3 (08:41→22:44)
[2021-10-07] MEDS: ALBUTEROL/IPRATROPIUM 3 ML NEB RESP TX SCH ×4 (00:02→19:05)
[2021-10-07] MEDS: PIPERACILLIN/TAZOBACTAM 3,375 MG in SODIUM CHLORIDE 0.9% 100 ML IV SCH ×2 (00:23→09:10)
[2021-10-07] MEDS: INSULIN LISPRO 100 UNIT/ML SUBCUT SCH ×4 (01:31→18:01)
[2021-10-07] MEDS: ISOSORBIDE DINITRATE 20 MG TABLET NG SCH ×3 (09:37→22:10)
[2021-10-07] MEDS: ASPIRIN CHEW 81 MG TABLET PO SCH (09:37)
[2021-10-07] MEDS: METOPROLOL TARTRATE 50 MG TABLET NG SCH ×2 (09:37→22:13)
[2021-10-07] MEDS: allopurinoL 100 MG TABLET PO SCH (09:37)
[2021-10-07] MEDS: minoxidiL 2.5 MG TABLET PO SCH ×2 (09:37→22:13)
[2021-10-07] MEDS: AMOXICILLIN/CLAV 500 MG TABLET PO SCH ×2 (09:37→22:08)
[2021-10-07] MEDS: PANTOPRAZOLE 40 MG VIAL IV SCH (09:38)
[2021-10-07] MEDS: FUROSEMIDE 80 MG TABLET PO SCH (09:38)
[2021-10-07 09:55] LABS: Calcium 7.4 MG/DL (8.5-10.1); Osmolality,Calculated 303.1 MOS/KG (273-304); Potassium 3.8 MMOL/L (3.5-5.1)
[2021-10-07] MEDS: BACLOFEN 10 MG TABLET PO SCH ×2 (16:08→22:08)
[2021-10-08] MEDS: ALBUTEROL/IPRATROPIUM 3 ML NEB RESP TX SCH ×2 (00:30→07:26)
[2021-10-08] MEDS: INSULIN LISPRO 100 UNIT/ML SUBCUT SCH ×3 (01:32→13:37)
[2021-10-08] MEDS: allopurinoL 100 MG TABLET PO SCH (09:18)
[2021-10-08] MEDS: FUROSEMIDE 80 MG TABLET PO SCH (09:18)
[2021-10-08] MEDS: ASPIRIN CHEW 81 MG TABLET PO SCH (09:20)
[2021-10-08] MEDS: AMOXICILLIN/CLAV 500 MG TABLET PO SCH (09:20)
[2021-10-08] MEDS: minoxidiL 2.5 MG TABLET PO SCH (09:20)
[2021-10-08] MEDS: METOPROLOL TARTRATE 50 MG TABLET NG SCH (09:20)
[2021-10-08] MEDS: ISOSORBIDE DINITRATE 20 MG TABLET NG SCH (09:20)
[2021-10-08] MEDS: PANTOPRAZOLE 40 MG VIAL IV SCH (09:21)
[2021-10-08] MEDS: BACLOFEN 10 MG TABLET PO SCH (11:18)
[2021-10-08 12:02] VITALS: BP 128/74
== END 2021-10-08 14:08 | disposition home health service (06) | DRG 208 ==
LOC: N.ED 21:36 → SUATTDRO 10-03 01:08 → N.EDINP 10-03 03:35 → N.ICU 10-03 15:09 → N.3E 10-06 13:33
PROVIDERS: ADMIT Internal Medicine; ATTEND Internal Medicine

== ENCOUNTER 2021-10-29 17:09 | Inpatient (IN) ==
[2021-10-29] MEDS ORDERED: ACETAMINOPHEN 325 MG TABLET PO PRN (17:17)
[2021-10-29] MEDS ORDERED: ONDANSETRON 4 MG/2 ML VIAL IV PRN (17:17)
[2021-10-29] MEDS ORDERED: BISACODYL 5 MG TABLET PO PRN (17:20)
[2021-10-29] MEDS ORDERED: traMADol 50 MG TABLET PO PRN (17:20)
[2021-10-29] MEDS ORDERED: GLUCAGON 1 MG VIAL IM PRN (17:20)
[2021-10-29] MEDS ORDERED: DEXTROSE 10% 250 ML BAG IV PRN (17:59)
[2021-10-29] MEDS ORDERED: ENOXAPARIN 30 MG/0.3 ML SYRINGE SUBCUT SCH (18:00)
[2021-10-29] MEDS ORDERED: SODIUM POLYSTYRENE SULFATE 15 GM/60 ML BOTTLE PO STA (18:48)
[2021-10-29 19:00] LABS: Basophils % 0.4 % (0.0-0.8); Eosinophils # 0.6 10*3/uL (0.0-0.87); Eosinophils % 10.6 % (0.00-10.9); Hematocrit 30.9 VOL% (42.0-52.0); Hemoglobin 9.2 GM/DL (14.0-18.0); Immature Granulocytes % 0.2 %; Immature Granulocytes Absolute 0.01 #; Lymphocytes # 1.3 10*3/uL (1.4-4.0); Lymphocytes % 25.8 % (21.2-54.2); Mean Corpuscular HGB Conc 29.8 GM/DL (32-36); Mean Corpuscular Volume 94.5 FL (87-102); Mean Platelet Volume 10.9 FL (9.6-12.0); Monocytes % 10.2 % (1.7-12.7); Neutrophils % 52.8 % (38.7-73.9); Platelet Count 264 T/CUMM (130-400); Red Blood Count 3.27 MC/CUMM (3.8-5.5); Red Cell Distribution Width 15.9 % (9.3-17.3); White Blood Count 5.2 T/CUMM (4-12)
[2021-10-29 19:18] LABS: Albumin 3.5 G/DL (3.4-5.0); Bilirubin,Total 0.6 MG/DL (0.20-1.00); Calcium 8.2 MG/DL (8.5-10.1); Osmolality,Calculated 295.5 MOS/KG (273-304); Total Protein 8.8 G/DL (6.4-8.2)
[2021-10-29 19:32] LABS: Hyaline Casts,Urine 1 /LPF (0-3); RBC,Urine 1 /HPF (0-4); Squamous Epithelial Cell,Urine Occasional /HPF (0-10)
[2021-10-29] MEDS: ALBUTEROL/IPRATROPIUM 3 ML NEB RESP TX SCH (19:33)
[2021-10-29 19:44] LABS: Urine Appearance Clear (Clear); Urine Color Yellow (Yellow)
[2021-10-29 19:45] LABS: Bilirubin,Urine Negative (Negative); Blood, Urine Trace mg/dL (Negative); Glucose,Urine (UA) Negative (Negative); Ketones,Urine Negative (Negative); Nitrite,Urine Negative (Negative); Protein,Urine 100 MG/DL; Urine Specific Gravity 1.015 (1.001-1.035); Urine Urobilinogen 0.2 EU/DL (<2.0)
[2021-10-29 20:03] LABS: Hepatitis B Core IgM Quant 0.48 Index; Hepatitis B Surface Ag Quant < 0.10 Index; Hepatitis B Surface Ag Result Non-Reactive (NonReactive); Hepatitis C Virus Ab Quant 0.23 Index; Hepatitis C Virus Ab Result Non-Reactive (NonReactive)
[2021-10-29] MEDS ORDERED: SODIUM POLYSTYRENE SULFATE 15 GM/60 ML BOTTLE PO ONE (21:00)
[2021-10-29] MEDS: METOPROLOL TARTRATE 50 MG TABLET PO SCH (21:00)
[2021-10-29] MEDS: FERROUS SULFATE 325 MG TABLET PO SCH (21:01)
[2021-10-29] MEDS: DOCUSATE SODIUM 100 MG CAPSULE PO SCH (21:01)
[2021-10-29] MEDS: INSULIN REGULAR 100 UNIT/ML SUBCUT SCH (21:41)
[2021-10-30] MEDS: ALBUTEROL/IPRATROPIUM 3 ML NEB RESP TX SCH ×4 (00:24→19:40)
[2021-10-30 08:29] LABS: Basophils % 0.6 % (0.0-0.8); Eosinophils # 0.6 10*3/uL (0.0-0.87); Eosinophils % 11.2 % (0.00-10.9); Hematocrit 31.3 VOL% (42.0-52.0); Hemoglobin 9.3 GM/DL (14.0-18.0); Immature Granulocytes % 0.2 %; Immature Granulocytes Absolute 0.01 #; Lymphocytes # 1.2 10*3/uL (1.4-4.0); Lymphocytes % 23.7 % (21.2-54.2); Mean Corpuscular HGB Conc 29.7 GM/DL (32-36); Mean Corpuscular Volume 94.6 FL (87-102); Mean Platelet Volume 12.1 FL (9.6-12.0); Neutrophils % 53.3 % (38.7-73.9); Platelet Count 278 T/CUMM (130-400); Red Blood Count 3.31 MC/CUMM (3.8-5.5); White Blood Count 4.9 T/CUMM (4-12)
[2021-10-30 08:49] LABS: Calcium 8.2 MG/DL (8.5-10.1); Osmolality,Calculated 297.4 MOS/KG (273-304); Potassium 3.6 MMOL/L (3.5-5.1); Risk Ratio 4.03; Uric Acid 7.1 MG/DL (3.5-7.2); VLDL Cholesterol 14.6 MG/DL
[2021-10-30 08:51] LABS: Eosinophils 17 % (0-10); Hypochromia 1+; Lymphocytes 17 % (20-55); Microcytosis 1+; Platelet Estimate Adequate; Segmented Neutrophils 51 % (50-85); Total Cells Counted 100
[2021-10-30] MEDS: INSULIN REGULAR 100 UNIT/ML SUBCUT SCH ×4 (09:50→21:44)
[2021-10-30] MEDS: cefTRIAXone 1,000 MG in SODIUM CHLORIDE 0.9% 100 ML IV SCH (10:03)
[2021-10-30] MEDS: ISOSORBIDE MONONITRATE 60 MG TABLET PO SCH (10:04)
[2021-10-30] MEDS: METOPROLOL TARTRATE 50 MG TABLET PO SCH ×2 (10:04→21:11)
[2021-10-30] MEDS: PANTOPRAZOLE 40 MG TABLET PO SCH (10:05)
[2021-10-30] MEDS: FERROUS SULFATE 325 MG TABLET PO SCH ×2 (10:05→21:11)
[2021-10-30] MEDS: DOCUSATE SODIUM 100 MG CAPSULE PO SCH ×2 (10:07→21:11)
[2021-10-30] MEDS ORDERED: BUPIVACAINE MPF 0.25% 30 ML VIAL ONE (11:12)
[2021-10-30] MEDS ORDERED: LIDOCAINE 1%/EPI INJ 20 ML VIAL ONE (11:12)
[2021-10-30] MEDS ORDERED: LIDOCAINE 2% 5 ML VIAL ONE (11:23)
[2021-10-30] MEDS ORDERED: ETOMIDATE 40 MG/20 ML VIAL IV ONE (11:23)
[2021-10-30] MEDS ORDERED: fentaNYL 100 MCG/2 ML VIAL ONE (11:23)
[2021-10-30] MEDS ORDERED: ONDANSETRON 4 MG/2 ML VIAL ONE (11:23)
[2021-10-30] MEDS ORDERED: MIDAZOLAM 2 MG/2 ML VIAL ONE ×2 (11:23→13:00)
[2021-10-30] MEDS ORDERED: DEXAMETHASONE 4 MG/1 ML VIAL ONE (11:23)
[2021-10-30] MEDS ORDERED: propofoL 200 MG/20 ML VIAL IV ONE (11:23)
[2021-10-30] MEDS ORDERED: DEXMEDETOMIDINE 200 MCG/2 ML VIAL ONE ×2 (11:23→13:14)
[2021-10-30] MEDS ORDERED: HEPARIN 5,000 UNIT/1 ML VIAL ONE (11:41)
[2021-10-30] MEDS ORDERED: SODIUM CHLORIDE 0.9% 250 ML IV SCH (12:00)
[2021-10-30] MEDS ORDERED: ceFAZolin 1,000 MG VIAL ONE (13:24)
[2021-10-30] MEDS ORDERED: HEPARIN 10,000 UNIT/10 ML VIAL IV SCH (15:00)
[2021-10-31] MEDS: ALBUTEROL/IPRATROPIUM 3 ML NEB RESP TX SCH ×4 (00:20→20:00)
[2021-10-31] MEDS: cefTRIAXone 1,000 MG in SODIUM CHLORIDE 0.9% 100 ML IV SCH (01:50)
[2021-10-31 08:20] LABS: Basophils % 0.2 % (0.0-0.8); Eosinophils # 0.1 10*3/uL (0.0-0.87); Eosinophils % 0.9 % (0.00-10.9); Hematocrit 28.6 VOL% (42.0-52.0); Hemoglobin 8.4 GM/DL (14.0-18.0); Immature Granulocytes % 0.2 %; Immature Granulocytes Absolute 0.01 #; Lymphocytes # 0.8 10*3/uL (1.4-4.0); Mean Corpuscular HGB Conc 29.4 GM/DL (32-36); Mean Corpuscular Volume 94.4 FL (87-102); Mean Platelet Volume 11.3 FL (9.6-12.0); Monocytes % 11.4 % (1.7-12.7); Neutrophils % 72.3 % (38.7-73.9); Platelet Count 219 T/CUMM (130-400); Red Blood Count 3.03 MC/CUMM (3.8-5.5); Red Cell Distribution Width 15.9 % (9.3-17.3); White Blood Count 5.5 T/CUMM (4-12)
[2021-10-31 08:36] LABS: Calcium 7.7 MG/DL (8.5-10.1); Osmolality,Calculated 296.4 MOS/KG (273-304); Potassium 3.9 MMOL/L (3.5-5.1)
[2021-10-31] MEDS: INSULIN REGULAR 100 UNIT/ML SUBCUT SCH ×4 (09:07→22:08)
[2021-10-31] MEDS: METOPROLOL TARTRATE 50 MG TABLET PO SCH ×2 (09:08→22:08)
[2021-10-31] MEDS: ISOSORBIDE MONONITRATE 60 MG TABLET PO SCH (09:08)
[2021-10-31] MEDS: PANTOPRAZOLE 40 MG TABLET PO SCH (09:08)
[2021-10-31] MEDS: DOCUSATE SODIUM 100 MG CAPSULE PO SCH ×2 (09:08→22:08)
[2021-10-31] MEDS: FERROUS SULFATE 325 MG TABLET PO SCH ×2 (09:08→22:07)
[2021-11-01] MEDS: cefTRIAXone 1,000 MG in SODIUM CHLORIDE 0.9% 100 ML IV SCH (01:52)
[2021-11-01 06:27] LABS: Calcium 8.1 MG/DL (8.5-10.1); Osmolality,Calculated 287.5 MOS/KG (273-304); Potassium 3.8 MMOL/L (3.5-5.1)
[2021-11-01 06:33] LABS: Basophils % 0.5 % (0.0-0.8); Eosinophils # 0.6 10*3/uL (0.0-0.87); Eosinophils % 9.1 % (0.00-10.9); Hematocrit 28.9 VOL% (42.0-52.0); Hemoglobin 8.5 GM/DL (14.0-18.0); Immature Granulocytes % 0.3 %; Immature Granulocytes Absolute 0.02 #; Lymphocytes # 1.4 10*3/uL (1.4-4.0); Lymphocytes % 23.6 % (21.2-54.2); Mean Corpuscular HGB Conc 29.4 GM/DL (32-36); Mean Corpuscular Volume 96.7 FL (87-102); Mean Platelet Volume 11.8 FL (9.6-12.0); Monocytes % 9.7 % (1.7-12.7); Neutrophils % 56.8 % (38.7-73.9); Platelet Count 177 T/CUMM (130-400); Red Blood Count 2.99 MC/CUMM (3.8-5.5); Red Cell Distribution Width 15.8 % (9.3-17.3); White Blood Count 6.1 T/CUMM (4-12)
[2021-11-01] MEDS: ALBUTEROL/IPRATROPIUM 3 ML NEB RESP TX SCH (06:55)
[2021-11-01] MEDS: INSULIN REGULAR 100 UNIT/ML SUBCUT SCH ×2 (08:42→12:31)
[2021-11-01] MEDS: PANTOPRAZOLE 40 MG TABLET PO SCH (08:43)
[2021-11-01] MEDS: ISOSORBIDE MONONITRATE 60 MG TABLET PO SCH (08:43)
[2021-11-01] MEDS: DOCUSATE SODIUM 100 MG CAPSULE PO SCH (08:43)
[2021-11-01] MEDS: METOPROLOL TARTRATE 50 MG TABLET PO SCH (08:43)
[2021-11-01] MEDS: FERROUS SULFATE 325 MG TABLET PO SCH (08:43)
[2021-11-01 13:18] VITALS: BP 174/81
== END 2021-11-01 14:49 | disposition home or self-care (01) | DRG 291 ==
LOC: N.3E 17:16
PROVIDERS: ADMIT Internal Medicine; ATTEND Internal Medicine